=== PATIENT | female | born 1965 | race Caucasian/White ===

== ENCOUNTER 2017-10-20 07:23 | Day surgery (SDC) | payer BC ==
[2017-10-20] MEDS ORDERED: Ringers Lactate 1,000 ML IV ONE (08:13)
[2017-10-20] MEDS ORDERED: PROPOFOL 200 MG/20 ML VIAL IV ONE ×2 (09:25→10:04)
[2017-10-20] MEDS ORDERED: LIDOCAINE 1% MPF 5 ML VIAL ONE (09:26)
--- NOTE | 2017-10-20 09:52 | ENDO RPT ---
[address], [address] COLONOSCOPY PROCEDURE REPORT EXAM DATE: 10/20/2017 PATIENT NAME: Jade Mercer MR #: [id number] BIRTHDATE: 1965 ATTENDING: Rm Brasher DR STATUS: outpatient [employer] ATTENDANT: Little Mendoza RN, Denisse Elliott, and Ayla Parada RN INDICATIONS: The patient is a 52 yr old Female here for a colonoscopy due to colon cancer screening PROCEDURE PERFORMED: Colonoscopy with biopsy - cold polypectomy MEDICATIONS: Per Anesthesia. ESTIMATED BLOOD LOSS: None CONSENT: The patient understands the risks and benefits of the procedure and understands that these risks include, but are not limited to: sedation, allergic reaction, infection, perforation and/or bleeding. Alternative means of evaluation and treatment include, among others: physical exam, x-rays, and/or surgical intervention. The patient elects to proceed with this endoscopic procedure. DESCRIPTION OF PROCEDURE: During intra-op preparation period all mechanical medical equipment was checked for proper function. Hand hygiene and appropriate measures for infection prevention was taken. Procedure, possible complications, alternatives including, but not limited to possibility of bleeding, perforation, tear, infection, sepsis, need for surgery, need for blood transfusion, were explained to the patient. After the risks, benefits and alternatives of the procedure were thoroughly explained, Informed consent was verified, confirmed and timeout was successfully executed by the treatment team. The patient was placed in the left lateral position. A digital rectal exam was performed and revealed internal hemorrhoids. After appropriate level of anesthesia, the scope was passed. The EC-3890Li ([id number]) endoscope was introduced through the anus and advanced to the cecum, which was identified by both the appendix and ileocecal valve. The quality of the prep was poor. The instrument was then slowly withdrawn as the colon was fully examined. Scope withdrawal time was 9 minutes. COLON FINDINGS: A small smooth semi-pedunculated polyp with a friable surface was found at the cecum. Multiple biopsies were performed using cold forceps. Sample was obtained and sent to histology. Retroflexed views revealed no abnormalities. The scope was then completely withdrawn from the patient and the procedure terminated. ADVERSE EVENTS: There were no complications. IMPRESSIONS: 1. Small semi-pedunculated polyp was found at the cecum; multiple biopsies were performed using cold forceps 2. Internal hemorrhoids RECOMMENDATIONS: 1. await biopsy results 2. fiber rich diet 3. avoid NSAIDS for 2 weeks 4. follow-up: office 2 week(s) 5. increase dietary water RECALL: Return in 5 year(s) for Colonoscopy, pending biopsy results. Rm Brasher DR eSigned: Rm Brasher DR 10/20/2017 9:51 AM cc: CPT CODES: ICD9 CODES: PATIENT NAME: Jade Mercer MR#: [id number]
== END 2017-10-20 10:29 | disposition home health service (06) ==
LOC: ENDO 07:23
PROVIDERS: ATTEND Surgery
PROC: 0DBH8ZX Excision of Cecum, Via Natural or Artificial Opening Endoscopic, Diagnostic (ICD-10-PCS; principal; 2017-10-20 09:30)
DX: Z12.11 Encounter for screening for malignant neoplasm of colon (principal); K63.5 Polyp of colon; K64.8 Other hemorrhoids; I10 Essential (primary) hypertension; Z88.0 Allergy status to penicillin; Z90.710 Acquired absence of both cervix and uterus; Z80.9 Family history of malignant neoplasm, unspecified; Z83.3 Family history of diabetes mellitus; Z82.49 Family history of ischemic heart disease and other diseases of the circulatory system; Z82.5 Family history of asthma and other chronic lower respiratory diseases; Z82.61 Family history of arthritis
CPT/HCPCS: 88305

== ENCOUNTER 2021-11-12 06:16 | Day surgery (SDC) | payer OTHER ==
[2021-11-12] MEDS ORDERED: NA CHLORIDE 0.9% 500 ML ONE (06:38)
[2021-11-12] MEDS ORDERED: LIDOCAINE 1% MPF 5 ML VIAL ONE (07:26)
[2021-11-12] MEDS ORDERED: propofoL 200 MG/20 ML VIAL IV ONE ×2 (07:26→07:43)
--- NOTE | 2021-11-12 08:03 | ENDO RPT ---
[address], [address] COLONOSCOPY PROCEDURE REPORT EXAM DATE: 11/12/2021 PATIENT NAME: Jade Mercer MR #: [id number] BIRTHDATE: 1965 ATTENDING: Rm Brasher DR STATUS: outpatient ROLL TESTER: Argenis Burton RN and Gray Flores [facility] INDICATIONS: The patient is a 56 yr old Female here for a colonoscopy due to history of polyps PROCEDURE PERFORMED: Screening Colonoscopy and Colonoscopy MEDICATIONS: Per Anesthesia. ESTIMATED BLOOD LOSS: None CONSENT: The patient understands the risks and benefits of the procedure and understands that these risks include, but are not limited to: sedation, allergic reaction, infection, perforation and/or bleeding. Alternative means of evaluation and treatment include, among others: physical exam, x-rays, and/or surgical intervention. The patient elects to proceed with this endoscopic procedure. DESCRIPTION OF PROCEDURE: During intra-op preparation period all mechanical medical equipment was checked for proper function. Hand hygiene and appropriate measures for infection prevention was taken. Procedure, possible complications, alternatives including, but not limited to possibility of bleeding, perforation, tear, infection, sepsis, need for surgery, need for blood transfusion, were explained to the patient. After the risks, benefits and alternatives of the procedure were thoroughly explained, Informed consent was verified, confirmed and timeout was successfully executed by the treatment team. The patient was placed in the left lateral position. A digital rectal exam was performed and revealed external hemorrhoids and A digital rectal exam was performed and revealed internal hemorrhoids. After appropriate level of anesthesia, the scope was passed. The EC-[id number] ([id number]) endoscope was introduced through the anus and advanced to the ileum. The quality of the prep was poor. The instrument was then slowly withdrawn as the colon was fully examined. Scope withdrawal time was 12 minutes. COLON FINDINGS: Small internal and external hemorrhoids were found. The colon mucosa was otherwise normal. Retroflexed views revealed no abnormalities. The scope was then completely withdrawn from the patient and the procedure terminated. ADVERSE EVENTS: There were no complications. IMPRESSIONS: 1. Small internal and external hemorrhoids 2. The colon mucosa was otherwise normal RECOMMENDATIONS: 1. avoid NSAIDS for 2 weeks 2. fiber rich diet 3. Monitor for any evidence of rectal bleeding. 4. continue surveillance 5. yearly hemoquant 6. hemorrhoidal hygiene RECALL: Return in 3 year(s) for Colonoscopy. Rm Brasher DR eSigned: Rm Brasher DR 11/12/2021 8:02 AM cc: CPT CODES: ICD9 CODES: PATIENT NAME: Jade Mercer MR#: [id number]
[2021-11-12 08:22] VITALS: TEMP 97.2
[2021-11-12 08:24] VITALS: O2SAT 97
[2021-11-12 08:25] VITALS: BP 116/87
== END 2021-11-12 08:31 | disposition home or self-care (01) ==
LOC: OR 06:16
PROVIDERS: ATTEND Surgery
PROC: 0DJD8ZZ Inspection of Lower Intestinal Tract, Via Natural or Artificial Opening Endoscopic (ICD-10-PCS; principal; 2021-11-12 07:30)
DX: Z86.010 Personal history of colon polyps (principal); Z20.822 Contact with and (suspected) exposure to COVID-19; K64.4 Residual hemorrhoidal skin tags; K64.8 Other hemorrhoids
CPT/HCPCS: 45378; U0002; J2704 ×2; J7040